=== PATIENT | female | born 1940 | race African-American/Black ===

== ENCOUNTER → 2017-02-24 | Outpatient (CLI) | payer MEDICARE, MEDICAID ==
[~2017-02-24] MED LIST: ACET-2502 PO
== END | disposition home or self-care (01) ==
LOC: RAD 14:34
PROVIDERS: ATTEND Family Medicine
DX: J18.9 Pneumonia, unspecified organism (principal); I51.7 Cardiomegaly
CPT/HCPCS: 71020

== ENCOUNTER → 2017-07-01 | Outpatient (CLI) | payer MEDICARE, MEDICAID | END | disposition home or self-care (01) | LOC: RAD 12:03 | PROVIDERS: ATTEND Family Medicine | DX: J18.8 Other pneumonia, unspecified organism (principal); I51.7 Cardiomegaly; M41.84 Other forms of scoliosis, thoracic region; M47.894 Other spondylosis, thoracic region | CPT/HCPCS: 71045 ==

== ENCOUNTER 2018-05-15 18:21 | Emergency (ER) | payer MEDICARE, MEDICAID ==
[~2018-05-15] VITALS: Ht 162.6 cm; Wt 57.0 kg
[2018-05-15] MEDS ORDERED: HYDROCODONE/ACETAMINOPHEN 5/325MG TABLET PO ONE (18:45)
[2018-05-15 22:33] VITALS: BP 135/87
== END 2018-05-15 21:42 | disposition home or self-care (01) ==
LOC: ER 18:21
DX: R07.89 Other chest pain (principal); Z91.81 History of falling
CPT/HCPCS: 71250; 93005; 99284